=== PATIENT | male | born 1975 | race Native Hawaiian/Other Pacific Islander ===

== ENCOUNTER 2022-01-04 10:08 | Emergency (ER) | payer SELFPAY ==
--- NOTE | 2022-01-04 10:47 | Emergency Department Report ---
ED Lower Extremity HPI - General Chief Complaint: Laceration/Recheck/Suture Stated Complaint: RGHT LEG CUT Time Seen by Provider: 01/04/22 10:25 Source: patient Mode of arrival: Wheelchair Limitations: Language Barrier - History of Present Illness Initial Comments: 46-year-old male presents to the ER today with complaints of laceration to his right lower leg. Patient was doing a project at home when he accidentally got poked in the right leg with sheet metal. He states that this happened just prior to arrival. He reports bleeding, and some pain mainly around the wound. He reports pain with ambulation. He is not up-to-date on his immunization. He reports no other symptoms at this time. MD Complaint: leg injury -: This morning - Related Data Previous Rx's Medication Instructions Recorded Last Taken Type Ibuprofen [Motrin] 600 mg PO Q8H PRN #30 tablet 01/04/22 Unknown Rx Allergies Allergy/AdvReac Type Severity Reaction Status Date / Time No Known Allergies Allergy Unverified 01/04/22 10:22 ED Review of Systems ROS: Stated complaint: RGHT LEG CUT Other details as noted in HPI Comment: All other systems reviewed and negative Constitutional: no symptoms reported Musculoskeletal: myalgia Skin: other (Laceration to right lower leg) Neurological: denies: headache, weakness, numbness, paresthesias, confusion, abnormal gait, vertigo Psychiatric: denies: anxiety, depression, auditory hallucinations, visual ochoa llucinations, homicidal thoughts, suicidal thoughts Hematological/Lymphatic: denies: easy bleeding, easy bruising ED Past Medical Hx - Medications Home Medications: Home Medications Medication Instructions Recorded Confirmed Last Taken Type Ibuprofen [Motrin] 600 mg PO Q8H PRN #30 tablet 01/04/22 Unknown Rx ED Physical Exam - General Limitations: Language Barrier General appearance: alert, in no apparent distress - Head Head exam: Present: atraumatic, normocephalic, normal inspection - Eye Eye exam: Present: normal appearance, PERRL, EOMI Pupils: Present: normal accommodation - Neck Neck exam: Present: normal inspection, full ROM - Respiratory Respiratory exam: Present: normal lung sounds bilaterally. Absent: respiratory distress, wheezes, rales, rhonchi - Cardiovascular Cardiovascular Exam: Present: regular rate, normal rhythm, normal heart sounds - Expanded Lower Extremity Exam Right Lower Leg exam: Present: full ROM, tenderness (Mainly around the laceration), swelling (Mainly around the laceration), laceration (Approximately 2.5 to 3 cm superficial laceration noted to the proximal posterior lateral aspect of right lower leg. No active bleeding.). Absent: abrasion, ecchymosis, deformity, crepidus, dislocation, erythema Neuro vascular tendon exam: Present: no vascular compromise, motor deficit, sensory deficit, tendon deficit. Absent: abnormal cap refill Gait: Positive: observed and limited by pain - Neurological Exam Neurological exam: Present: alert, oriented X3, CN II-XII intact - Psychiatric Psychiatric exam: Present: normal affect, normal mood ED Course Vital Signs 01/04/22 10:24 Temperature 98.2 F Pulse Rate 115 H Respiratory 18 Rate Blood Pressure 132/89 [Right] O2 Sat by Pulse 99 Oximetry - Laceration /Wound Repair Right Lower Leg Wound Location: lower extremity (Right lower leg ) Wound Length (cm): 3 Wound's Depth, Shape: superficial Wound Explored: clean Irrigated w/ Saline (ccs): 50 Betadine Prep?: Yes Anesthesia: 1% Lidocaine Volume Anesthetic (ccs): 10 Wound Repaired With: sutures Suture Size/Type: 4:0, proline Number of Sutures: 4 Layer Closure?: No Sterile Dressing Applied?: Yes Progress: Patient tolerated procedure well without any complications. ED Lower Extremity MDM - Radiology Data Radiology results: report reviewed Patient: ESTUARDO HINTON MR#: [id number] 6 : 1975 Acct:[id number] Age/Sex: 46 / M ADM Date: 01/04/22 Loc: ED Attending Dr: Ordering Physician: BOB GUERIN Date of Service: 01/04/22 Procedure(s): XR tibia fibula 2V RT Accession Number(s): [id number] cc: BOB GUERIN Fluoro Time In Minutes: XR tibia fibula 2V RT INDICATION / CLINICAL INFORMATION: puncture wound/lac lower leg. COMPARISON: None available. FINDINGS: BONES/JOINT(S): No acute fracture or subluxation. No significant degenerative changes. SOFT TISSUES: No significant abnormality. No radiopaque foreign bodies or soft tissue gas. ADDITIONAL FINDINGS: None. Signer Name: Catrachito Campbell MD Signed: 01/04/2022 11:17 AM Workstation Name: [email or web address] Transcribed By: JUAN Dictated By: Catrachito Campbell MD Electronically Authenticated By: Catrachito Campbell MD Signed Date/Time: 01/04/221116 DD/ 15 TD/TT: Critical care attestation.: If time is entered above; I have spent that time in minutes in the direct care of this critically ill patient, excluding procedure time. ED Disposition Clinical Impression: Laceration of leg Disposition: HOME / SELF CARE / HOMELESS Is pt being admited?: No Does the pt Need Aspirin: No Condition: Stable Instructions: Laceration Care, Adult, [id number] Additional Instructions: Keep the wound clean daily with soap and water. Dry well after each cleaning, then apply thin layer of neosporin. Do this daily until its time for suture removal in next 10 days. Elevate leg for the next 2 days. YOu can take ibuprofen or tylenol for pain. Return to ED or f/u with PCP in 10 days for suture removal. Return sooner if area appears to be infected with increased swelling, redness, or pus drainage. Prescriptions: Ibuprofen [Motrin] 600 mg PO Q8H PRN #30 tablet PRN Reason: Pain Referrals: PRIMARY CARE, [Primary Care Provider] - 3-5 Days Forms: Work/School Release Form(ED) Time of Disposition: 11:37
[2022-01-04] MEDS ORDERED: LIDOCAINE (1%) 10 MG/1 ML VIAL 20 ML MDV INFILTRATI ONE (10:48)
[2022-01-04] MEDS ORDERED: TETANUS,DIPH,PERTUSS(ACELL) VACCINE 0.5 ML SYRINGE IM ONE (10:48)
[2022-01-04] MEDS ORDERED: ACETAMINOPHEN 325 MG TAB PO ONE (10:48)
--- NOTE | 2022-01-04 11:21 | XRay Report ---
XR tibia fibula 2V RT INDICATION / CLINICAL INFORMATION: puncture wound/lac lower leg. COMPARISON: None available. FINDINGS: BONES/JOINT(S): No acute fracture or subluxation. No significant degenerative changes. SOFT TISSUES: No significant abnormality. No radiopaque foreign bodies or soft tissue gas. ADDITIONAL FINDINGS: None. Signer Name: Catrachito Campbell MD Signed: 01/04/2022 11:17 AM Workstation Name: [email or web address]
[2022-01-04] MEDS ORDERED: NEOMY 3.5 MG/BACIT 400 UNITS/POLY B 5000 UNITS/GM OINT PACKET TP ONE (11:57)
[2022-01-04 12:14] VITALS: BP 124/73
== END 2022-01-04 12:14 | disposition home or self-care (01) ==
LOC: ED 10:08
DX: S81.811A Laceration without foreign body, right lower leg, initial encounter (principal); Z79.899 Other long term (current) drug therapy; W26.8XXA Contact with other sharp object(s), not elsewhere classified, initial encounter; Y93.89 Activity, other specified; Y92.89 Other specified places as the place of occurrence of the external cause; Y99.8 Other external cause status
CPT/HCPCS: 12002; 73590; 90471; 90715; 99283; J3490

== ENCOUNTER 2022-01-14 17:44 | Emergency (ER) | payer SELFPAY ==
[2022-01-14 21:48] VITALS: BP 155/80
--- NOTE | 2022-01-14 22:13 | Emergency Department Report ---
Suture/Staple Removal - [facility] Chief Complaint: Laceration/Recheck/Suture Stated Complaint: SUTURE REMOVAL Time Seen by Provider: 01/14/22 22:15 When Sutures or Gustavo Placed: 8-10 Days Ago Wound Location: right lower leg ED Review of Systems ROS: Stated complaint: SUTURE REMOVAL Other details as noted in HPI Skin: denies: rash, lesions, change in hair/nails ED Past Medical Hx - Medications Home Medications: Home Medications Medication Instructions Recorded Confirmed Last Taken Type Ibuprofen [Motrin] 600 mg PO Q8H PRN #30 tablet 01/04/22 Unknown Rx Suture Removal Exam - Exam General: Vital signs noted. No distress. Alert and acting appropriately. Wound: No Pathologic Erythema, No Tenderness, No Drainage, No Pus, No Wound Dehiscence Other Systems: All other systems reviewed and are unremarkable. ED Course Vital Signs 01/14/22 21:44 Temperature 98.3 F Pulse Rate 71 Respiratory 18 Rate Blood Pressure 155/80 [Right] O2 Sat by Pulse 100 Oximetry ED Recheck MDM - Differential Diagnosis Suture/Staple Removal - Medical Decision Making 46-year-old male presents to the ED to have suture removal from right lower leg. Patient has suture placed and on JanuaryJanuary 04, 2022. 4 simple suture removal from the lower leg. No drainage or edema noted. Mild erythema noted around the site. Patient denies any pain or discomfort at. Alert and oriented x3. Denies any fever chills or discomfort at present. Rechecked the patient is resting quietly quietly and comfortable and feeling better. I discussed the results of diagnostic study, my clinical impression and the plan for further treatment with the patient. Patient agrees with plan and discharge at this present time. All question addressed. I have given the patient instruction regarding a diagnosis ,expectation ,follow- up and return precaution. I explained to the patient that emergent condition may arise and to return to the ED for new worsen and any new persisting condition. I have explained the importance of following up with the primary care physician or referral physician listed below has instructed. The patient verbalized understanding of discharge instruction. Critical care attestation.: If time is entered above; I have spent that time in minutes in the direct care of this critically ill patient, excluding procedure time. ED Disposition Clinical Impression: Encounter for removal of sutures Disposition: HOME / SELF CARE / HOMELESS Is pt being admited?: No Does the pt Need Aspirin: No Condition: Stable Instructions: Wound Closure Removal, Care After Additional Instructions: Return to ED for any swelling drainage fever ,chills noted to the site Time of Disposition: 22:20
== END 2022-01-14 22:53 | disposition home or self-care (01) ==
LOC: ED 17:44
DX: S81.811D Laceration without foreign body, right lower leg, subsequent encounter (principal); X58.XXXD Exposure to other specified factors, subsequent encounter